=== PATIENT | female | born 1995 | race Caucasian/White ===

== ENCOUNTER 2022-11-09 14:13 | Outpatient (REF) | payer OTHER, SELFPAY ==
[2022-11-09 18:43] LABS: Abs Immature Grans 0.05 10^3/uL (0.0-0.06); Absolute Basophil Count 0.04 10^3/uL (0.0-0.2); Absolute Eosinophil Count 0.07 10^3/uL (0.0-0.7); Absolute Lymphocyte Count 1.49 10^3/uL (1.2-3.4); Absolute Monocyte Count 0.47 10^3/uL (0.1-0.8); Absolute Neutrophil Count 6.22 10^3/uL (1.2-6.7); Basophils % 0.5; Eosinophils % 0.8; HCT 39.1 % (36.0-46.0); HGB 12.9 g/dL (11.2-15.7); Immature Grans % 0.6; Lymphocytes % 17.9; MCV 82 fL (80-95); Monocytes % 5.6; Neutrophils % 74.6; Platelet Count 325 10^3/uL (130-400); RBC 4.78 10^6/uL (3.93-5.22); RDW 12.7 % (11.7-14.6); RDW-SD 37.5 fL; WBC 8.34 10^3/uL (4.4-10.8)
[2022-11-09 19:19] LABS: Vitamin D 25 Total 19.8 ng/mL (30-100)
[2022-11-09 19:26] LABS: ALT 18 U/L (14-59); AST 16 U/L (15-37); Albumin 3.8 g/dL (3.4-5.0); Alkaline Phosphatase 81 U/L (46-116); Anion Gap 11.4 mmol/L (3-11); BUN 8 mg/dL (7-18); Bilirubin, Total 0.1 mg/dL (0.2-1.0); CO2 24.6 mmol/L (21.0-32.0); CREATININE 0.7 mg/dL (0.55-1.02); Calcium 9.5 mg/dL (8.5-10.1); Chloride 105 mmol/L (98-107); Estimated GFR 123.01 (mL/min/1.73m2); Glucose 92 mg/dL (74-106); Potassium 4.2 mmol/L (3.5-5.1); Sodium 141 mmol/L (136-145); Total Protein 7.8 g/dL (6.4-8.2); Vitamin B12 218 pg/mL (193-986)
== END 2022-11-09 14:14 | disposition home or self-care (01) ==
LOC: NCHCN 14:13
PROVIDERS: Visit Provider Registered Nurse
DX: F41.8 Other specified anxiety disorders (principal); R53.83 Other fatigue; E55.9 Vitamin D deficiency, unspecified; R79.89 Other specified abnormal findings of blood chemistry
CPT/HCPCS: 80053; 82306; 82607; 84443; 85025

== ENCOUNTER 2023-04-15 17:47 | Outpatient (REF) | payer OTHER, SELFPAY ==
[2023-04-15 21:23] LABS: Abs Immature Grans 0.08 10^3/uL (0.0-0.06); Absolute Lymphocyte Count 2.59 10^3/uL (1.2-3.4); Basophils % 0.4; Eosinophils % 0.4; HGB 12.8 g/dL (11.2-15.7); Immature Grans % 0.6; Lymphocytes % 18.6; MCH 25.6 pg (27.0-33.0); MCHC 32.8 % (32.0-36.0); MCV 78 fL (80-95); MPV 10.6 fL (8.0-11.0); Monocytes % 5.5; Neutrophils % 74.5; Platelet Count 399 10^3/uL (130-400); RDW 13.4 % (11.7-14.6); RDW-SD 38.1 fL; WBC 13.94 10^3/uL (4.4-10.8)
[2023-04-15 21:30] LABS: Absolute Basophil Count 0.06 10^3/uL (0.0-0.2); Absolute Eosinophil Count 0.06 10^3/uL (0.0-0.7); Absolute Monocyte Count 0.77 10^3/uL (0.1-0.8); Absolute Neutrophil Count 10.39 10^3/uL (1.2-6.7)
[2023-04-15 21:43] LABS: Anion Gap 11.4 mmol/L (3-11); BUN 10 mg/dL (7-18); CO2 24.6 mmol/L (21.0-32.0); CREATININE 0.7 mg/dL (0.55-1.02); Chloride 103 mmol/L (98-107); Estimated GFR 123.01 (mL/min/1.73m2); Glucose 77 mg/dL (74-106); Potassium 3.8 mmol/L (3.5-5.1); Sodium 139 mmol/L (136-145); TSH (W/Ref FT4) 7.01 uIU/mL (0.36-3.74)
[2023-04-15 22:16] LABS: FREE T4 1.03 ng/dL (0.76-1.46)
[2023-04-17 10:55] LABS: Lyme Ab w Rflx to Lyme Confirm Negative (Negative)
[2023-04-18 14:29] LABS: Anaplasma phagocytophilum Negative (Negative); B. miyamotoi PCR Negative (Negative); Babesia divergens/MO-1 Negative (Negative); Babesia duncani Negative (Negative); Babesia microti Negative (Negative); Ehrlichia chaffeensis Negative (Negative); Ehrlichia ewingii/canis Negative (Negative); Ehrlichia muris eauclairensis Negative (Negative)
== END 2023-04-15 17:48 | disposition home or self-care (01) ==
LOC: LBN 17:47
PROVIDERS: Visit Provider Physician Assistant
DX: R51.9 Headache, unspecified (principal)
CPT/HCPCS: 80048; 87798; 84439; 84443; 85025; 86618

== ENCOUNTER 2023-07-04 18:58 | Outpatient (REF) | payer OTHER, SELFPAY ==
[2023-07-04 19:23] LABS: Abs Immature Grans 0.06 10^3/uL (0.0-0.06); Absolute Basophil Count 0.03 10^3/uL (0.0-0.2); Absolute Eosinophil Count 0.07 10^3/uL (0.0-0.7); Absolute Monocyte Count 0.64 10^3/uL (0.1-0.8); Absolute Neutrophil Count 7.59 10^3/uL (1.2-6.7); Basophils % 0.3; Eosinophils % 0.7; HCT 37.9 % (36.0-46.0); HGB 12.2 g/dL (11.2-15.7); Immature Grans % 0.6; MCH 25.7 pg (27.0-33.0); MCHC 32.2 % (32.0-36.0); MCV 80 fL (80-95); MPV 10.9 fL (8.0-11.0); Monocytes % 6.1; Neutrophils % 72.3; Platelet Count 344 10^3/uL (130-400); RBC 4.75 10^6/uL (3.93-5.22); RDW 14.2 % (11.7-14.6); RDW-SD 41.2 fL; WBC 10.49 10^3/uL (4.4-10.8)
[2023-07-04 19:35] LABS: ALT 20 U/L (14-59); AST 14 U/L (15-37); Albumin 3.7 g/dL (3.4-5.0); Alkaline Phosphatase 79 U/L (46-116); Anion Gap 9.4 mmol/L (3-11); BUN 9 mg/dL (7-18); Bilirubin, Total 0.3 mg/dL (0.2-1.0); CO2 24.6 mmol/L (21.0-32.0); CREATININE 0.7 mg/dL (0.55-1.02); Calcium 9.6 mg/dL (8.5-10.1); Chloride 104 mmol/L (98-107); Estimated GFR 123.01 (mL/min/1.73m2); Glucose 82 mg/dL (74-106); Potassium 3.9 mmol/L (3.5-5.1); Sodium 138 mmol/L (136-145); Total Protein 7.4 g/dL (6.4-8.2)
[2023-07-04 23:31] LABS: TSH (W/Ref FT4) 2.74 uIU/mL (0.36-3.74)
[2023-07-05 18:49] LABS: CRP, High Sensitivity >15.00 mg/L (See Note)
[2023-07-08 14:41] LABS: ANA Interpretation Negative (Negative)
== END 2023-07-04 18:59 | disposition home or self-care (01) ==
LOC: NCHCN 18:58
PROVIDERS: Visit Provider Nurse Practitioner Family
DX: L73.2 Hidradenitis suppurativa (principal)
CPT/HCPCS: 80053; 86141; 84443; 85025; 86038

== ENCOUNTER 2023-11-28 22:01 | Outpatient (REF) | payer OTHER, SELFPAY | END 2023-11-28 22:02 | disposition home or self-care (01) | LOC: NCHCN 22:01 | PROVIDERS: Visit Provider Student in an Organized Health Care Education/Training Program | DX: J02.9 Acute pharyngitis, unspecified (principal) | CPT/HCPCS: 87081 ==

== ENCOUNTER 2024-08-25 14:42 | Outpatient (CLI) | payer OTHER, SELFPAY ==
[2024-08-25 14:41] LABS: Absolute Basophil Count 0.01 10^3/uL (0.0-0.2); Absolute Lymphocyte Count 0.63 10^3/uL (1.2-3.4); Absolute Monocyte Count 0.16 10^3/uL (0.1-0.8); Absolute Neutrophil Count 10.51 10^3/uL (1.2-6.7); Basophils % 0.1 %; HCT 37.7 % (36.0-46.0); HGB 11.7 g/dL (11.2-15.7); Immature Grans % 0.9 %; Lymphocytes % 5.5 %; MCH 24.6 pg (27.0-33.0); MCV 79 fL (80-95); Monocytes % 1.4 %; Neutrophils % 92.1 %; Platelet Count 357 10^3/uL (130-400); RBC 4.76 10^6/uL (3.93-5.22); RDW 14.7 % (11.7-14.6); RDW-SD 42.5 fL; WBC 11.41 10^3/uL (4.4-10.8)
[2024-08-25 15:50] LABS: ALT 19 U/L (14-59); AST 11 U/L (15-37); Albumin 3.8 g/dL (3.4-5.0); Alkaline Phosphatase 89 U/L (46-116); Bilirubin, Direct 0.1 mg/dL (0.0-0.2); C-Reactive Protein 2.91 mg/dL (<or=0.5); Total Protein 7.9 g/dL (6.4-8.2)
[2024-08-25 23:33] LABS: Thyroglobulin Antibody 20 U/mL (<=60); Thyroperoxidase Antibody 52 U/mL (<=60)
[2024-08-26 12:53] LABS: ANA Interpretation Negative (Negative)
== END 2024-08-25 14:43 | disposition home or self-care (01) ==
LOC: LBO 14:42
PROVIDERS: Allergy & Immunology; Visit Provider Nurse Practitioner Family
DX: R23.2 Flushing (principal); L50.1 Idiopathic urticaria
CPT/HCPCS: 36415; 80076; 83520; 86376; 85025; 86038; 86140

== ENCOUNTER 2024-09-13 09:00 | Outpatient (REF) | payer OTHER, SELFPAY ==
[2024-09-17 15:30] LABS: Creatinine Concentration,24hrU 98 mg/dL; Creatinine, 24hr U 1289 mg/24 h (603 - 1783); N-Methylhistamine, 24hr 212 mcg/g Cr (30-200); Urine Volume 1315 mL
[2024-09-18 16:58] LABS: Creatinine Conc, 24hr Ur 97 mg/dL; Creatinine, 24 hr Ur 1276 mg/24 h (603 - 1783); Leukotriene E4, Ur 97 pg/mg Cr (<=104); Urine Volume 1315 mL
[2024-09-23 15:46] LABS: 2,3-Dinor 11B-ProstaglandinF2a 794 pg/mg Cr (<1802); Creatinine Conc, 24hr Ur 98 mg/dL; Creatinine, 24hr, Ur 1289 mg/24 h (603 - 1783); Urine Volume 1315 mL
== END 2024-09-13 09:01 | disposition home or self-care (01) ==
LOC: LBN 09:00
PROVIDERS: Visit Provider Allergy & Immunology
DX: Z01.812 Encounter for preprocedural laboratory examination (principal)
CPT/HCPCS: 82542; 82570; 84150; 81050

== ENCOUNTER 2024-09-17 02:36 | Outpatient (CLI) | payer OTHER, SELFPAY ==
[2024-09-23 12:20] LABS: Specimen Type blood
== END 2024-09-17 02:37 | disposition home or self-care (01) ==
PROVIDERS: Visit Provider Allergy & Immunology
DX: R23.2 Flushing (principal); L50.1 Idiopathic urticaria
CPT/HCPCS: 36415; 81273

== ENCOUNTER 2025-04-20 13:04 | Outpatient (REF) | payer OTHER, SELFPAY ==
[2025-04-22 14:19] LABS: Fentanyl Scr w/Rfx Confirm Negative ng/mL (<1)
== END 2025-04-20 13:05 | disposition home or self-care (01) ==
LOC: NCHCN 13:04
PROVIDERS: Visit Provider Student in an Organized Health Care Education/Training Program
DX: F90.9 Attention-deficit hyperactivity disorder, unspecified type (principal)
CPT/HCPCS: 80307

== ENCOUNTER 2025-05-05 12:07 | Outpatient (REF) | payer OTHER, SELFPAY ==
--- NOTE | 2025-05-05 12:15 | PAPFT_PTH ---
PATIENT: Maribell Dailey LOC: [facility] U#:[id number] AGE/SX: 29/F ROOM: RE05/05/[address]: Nolvia Tillman MD : 1995 BED: DIS: 05/05/2025 SPEC #: [id number] RECD: 05/05/25 18:04 STATUS: CHADD PAULINO #: [id number] LILIYA: 05/05/25 12:[address]: Nolvia Tillman DEPT: [facility] Cytology RECD BY: Estella Cool ENTERED: 05/05/25 18:05 SP TYPE: PAPFT OTHR DR: Rajat Alonso Tissues: 1 - CX/ENDOCX FOR PAP SMEARS Procedures: PAP THIN PREP/[facility] Screening HPV DNA PROBE Comments: [id number] (HPV 16 & 18/45)
== END 2025-05-05 12:08 | disposition home or self-care (01) ==
LOC: LBN 12:07
PROVIDERS: PCP Student in an Organized Health Care Education/Training Program; Visit Provider Obstetrics & Gynecology
DX: Z12.4 Encounter for screening for malignant neoplasm of cervix (principal)
CPT/HCPCS: 88142; 87624

== ENCOUNTER 2025-05-18 14:12 | Outpatient (REF) | payer OTHER, SELFPAY ==
[2025-05-19 11:56] LABS: Chlamydia Result Negative (Negative); GC Result Negative (Negative)
== END 2025-05-18 14:13 | disposition home or self-care (01) ==
LOC: LBN 14:12
PROVIDERS: PCP Student in an Organized Health Care Education/Training Program; Visit Provider Obstetrics & Gynecology
DX: Z30.430 Encounter for insertion of intrauterine contraceptive device (principal)
CPT/HCPCS: 87491; 87591